=== PATIENT | male | born 1960 | race Caucasian/White ===

== ENCOUNTER 2021-01-27 08:51 | Day surgery (SDC) | payer MEDICARE, OTHER ==
[~2021-01-27] VITALS: Ht 177.8 cm; Wt 89.7 kg
[2021-01-27] MEDS ORDERED: TRAZ50TA66 PO (09:21)
[2021-01-27] MEDS ORDERED: FLUO20TA25 PO (09:21)
[2021-01-27] MEDS ORDERED: ATOR20TA37 PO (09:21)
[2021-01-27] MEDS ORDERED: ASPI81TA45 PO (09:21)
[2021-01-27] MEDS ORDERED: CLOP75TA PO (09:21)
[2021-01-27] MEDS ORDERED: SACU1TAB PO (09:21)
[2021-01-27] MEDS ORDERED: EZET10TA70 PO (09:21)
[2021-01-27] MEDS ORDERED: metoprolol PO (09:21)
[2021-01-27] MEDS ORDERED: atorvastatin PO (09:22)
[2021-01-27] MEDS ORDERED: CHLORHEXIDINE 15 ML UDC PO ONE (09:30)
[2021-01-27] MEDS ORDERED: LACTATED RINGERS 1,000 ML IV SCH (09:30)
[2021-01-27 09:31] VITALS: BP 105/67
== END 2021-01-27 12:50 | disposition home or self-care (01) ==
LOC: OUT 08:51
PROVIDERS: ATTEND Internal Medicine Gastroenterology
DX: Z12.11 Encounter for screening for malignant neoplasm of colon (principal); K21.9 Gastro-esophageal reflux disease without esophagitis; K44.9 Diaphragmatic hernia without obstruction or gangrene; K29.70 Gastritis, unspecified, without bleeding; K31.9 Disease of stomach and duodenum, unspecified; K63.5 Polyp of colon; K64.0 First degree hemorrhoids; K64.4 Residual hemorrhoidal skin tags; K57.30 Diverticulosis of large intestine without perforation or abscess without bleeding; I25.2 Old myocardial infarction; Z86.010 Personal history of colon polyps; Z95.5 Presence of coronary angioplasty implant and graft
CPT/HCPCS: 88305; 93005